=== PATIENT | female | born 1975 | race Caucasian/White ===

== ENCOUNTER 2016-10-04 04:29 | Inpatient (IN) | payer BC ==
[~2016-10-04] VITALS: Ht 170.2 cm; Wt 78.6 kg
[2016-10-04 04:41] VITALS: BMI 23.2
[2016-10-04] MEDS ORDERED: PRENTAB26 PO (04:41)
[2016-10-04 04:48] VITALS: Ht 170.2 cm; Wt 78.6 kg
[2016-10-04] MEDS ORDERED: LACTATED RINGER'S 1000ML 1,000 ML IV PRN ×2 (05:22→06:38)
[2016-10-04] MEDS ORDERED: LACTATED RINGER'S 1000ML 1,000 ML IV SCH ×2 (05:22→06:38)
[2016-10-04 05:53] LABS: HEMATOCRIT 28.5 % (37-47); MEAN CELL VOLUME 90.2 fL (80-100); MEAN CORPUSCULAR HEMOGLOBIN 30.4 pg (25-34); MEAN CORPUSCULAR HGB CONC 33.7 g/dl (32-36); MEAN PLATELET VOLUME 11.4 fL (7.4-10.4); PLATELET COUNT 204 K/uL (130-400); RED BLOOD COUNT 3.16 M/uL (4.2-5.4)
[2016-10-04] MEDS ORDERED: LACTATED RINGER'S 1000ML 500 ML IV PRN (07:13)
[2016-10-04] MEDS ORDERED: NALOXONE HCL INJ 1 MG in SODIUM CHLORIDE 0.9% 1000ML 1,000 ML IV PRN (07:13)
[2016-10-04] MEDS ORDERED: NALOXONE HCL INJ 0.4 MG/1 ML VIAL/CARP IV PRN (07:15)
[2016-10-04] MEDS ORDERED: FENTANYL 2MCG/ML ROPIV 1.25MG/ML 100ML BAG EPI PRN (07:15)
[2016-10-04] MEDS ORDERED: DiphenhydrAMINE HCL 50 MG/ML VIAL IV PRN (07:15)
[2016-10-04] MEDS ORDERED: EpHEDrine SULFATE INJ 50 MG/ML AMP IV PRN (07:15)
[2016-10-04] MEDS ORDERED: NALBUPHINE HCL INJ 10 MG/ML AMP IV PRN (07:15)
[2016-10-04] MEDS ORDERED: ONDANSETRON INJ 2 MG/ML 2 ML VIAL IV PRN (07:15)
[2016-10-04] MEDS ORDERED: OXYTOCIN 30 UNITS/500ML NSS IV ONE (08:15)
[2016-10-04] MEDS ORDERED: HYDROCORTISONE ACETATE 25 MG SUPP PR PRN (09:30)
[2016-10-04] MEDS ORDERED: OXYTOCIN 30 UNITS/500ML NSS IV PRN ×2 (09:30→09:45)
[2016-10-04] MEDS ORDERED: ACETAMINOPHEN/CODEINE 300/30MG TAB PO PRN ×2 (09:30)
[2016-10-04] MEDS ORDERED: LANOLIN OINT EXT PRN ×2 (09:30)
[2016-10-04] MEDS ORDERED: BENZOCAINE 20% AER SPR 82.5 GM CAN EXT PRN (09:30)
[2016-10-04] MEDS ORDERED: SUPERCREAM 0.870 % 15GM JAR EXT PRN (09:30)
[2016-10-04] MEDS ORDERED: NURSING VERBAL MED ORDER ONE (10:15)
[2016-10-04] MEDS: IBUPROFEN 600 MG TAB PO PRN ×2 (10:23→17:47)
[2016-10-04] MEDS ORDERED: OXYTOCIN INJ 20 UNITS in LR 1,000 ML IV SCH (10:30)
--- NOTE | 2016-10-04 10:38 | DELIVERY SUMMARY ---
DATE OF OPERATION: 10/04/2016 DATE OF DELIVERY: 10/04/2016. DELIVERING SURGEON: Dr. Narayanan. PROCEDURE: Spontaneous vaginal delivery with repair of 2nd degree perineal laceration. COMPLICATIONS: None. ESTIMATED BLOOD LOSS: 400 mL. FINDINGS: Viable male with Apgars 8 and 9, weight pending. DESCRIPTION OF DELIVERY: The patient progressed to complete with no epidural anesthesia. She then spontaneously vaginally delivered a viable male over an intact perineum. The baby delivered in the left occiput anterior position. The head delivered, nuchal cord x2 was noted. This was tight and not easily reduced, therefore the baby was delivered through, the anterior shoulder was delivered followed by the posterior shoulder followed by the body. The baby was dried and placed on the mother's abdomen and spontaneous cry was heard. Delayed cord clamping was performed waiting greater than 1 minute to clamp the cord. This cord was then doubly clamped and cut. Cord blood was obtained. The placenta was delivered spontaneously intact with a 3-vessel cord. Pitocin was given and the uterus became firm. The uterus and vagina were swept of all clots and debris. A second degree perineal laceration was noted. This was repaired in standard fashion with 3-0 Vicryl. Additionally while the anal sphincter muscle was not damaged by the perineal tear a single figure-of-8 stitch of 3-0 chromic was placed to provide additional support to the fascia of the anal sphincter muscle. Excellent hemostasis was observed. All sponge, instrument, and needle counts were correct x2 at the conclusion of the case. Mother and baby recovered well in the room. I attest to the content of the Intraoperative Record and any orders documented therein. Any exceptions are noted below. NORIS
[2016-10-04 10:50] VITALS: BP 106/64; PULSE 87; TEMP 36.8; O2SAT 100
[2016-10-04 15:00] VITALS: BP 107/68; PULSE 98; TEMP 36.6; O2SAT 97
[2016-10-04] MEDS: DOCUSATE SODIUM 100 MG/10 ML UDC PO SCH (19:42)
[2016-10-04 20:00] VITALS: BP 107/64; TEMP 37
[2016-10-04] MEDS ORDERED: DOCUSATE SODIUM 100 MG CAP PO SCH (20:00)
[2016-10-04 22:54] VITALS: BP 101/60; PULSE 92; TEMP 36.9
[2016-10-05 03:10] VITALS: BP 109/59; PULSE 92; TEMP 36.8
--- NOTE | 2016-10-05 06:44 | Progress Note ---
Subjective Oct 05, 2016. Subjective conversation w/ patient, physical exam Ambulation: ambulating normally Voiding: no voiding problems Passing Gas: Yes Diet Tolerance: Regular Diet Lochia: Small Feeding Type: Breast Feeding Pain: No pain reported this morning Review of Systems Constitutional: No chills, No fever Respiratory: No cough, No shortness of breath Cardiac: No chest pain Breast: No breast pain Abdomen: No nausea, No pain, No vomiting Female : No dysuria Objective Vital Signs Date Time Temp Pulse Resp B/P Pulse Ox O2 Delivery O2 Flow Rate FiO2 10/05/16 03:10 36.8 92 18 109/59 Room Air 10/04/16 22:57 Room Air 10/04/16 22:54 36.9 92 16 101/60 Room Air 10/04/16 20:00 37.0 18 107/64 Room Air 10/04/16 15:00 36.6 98 20 107/68 97 Room Air 10/04/16 15:00 97 Room Air 10/04/16 10:50 36.8 87 16 106/64 100 Room Air 10/04/16 10:50 100 Room Air Physical Exam General Appearance: WELL-APPEARING, WD/WN, NO APPARENT DISTRESS Respiratory/Chest: lungs clear, normal breath sounds Cardiovascular: regular rate, rhythm, no gallop, no murmur Abdomen: normal bowel sounds, non tender, soft Fundus: Firm, Relation to Umbilicus (1cm below umbilicus) Extremities: no calf tenderness Laboratory Results Last 24 Hours Test 10/05/16 04:44 Medications Current Inpatient Medications Medications (Trade) Dose Ordered Sig/Evan Route Start Time Stop Time Status Last Admin Dose Admin Lactated Ringer's (Lr 1000ml) 1,000 ml @ 125 mls/hr Q8H IV 10/04/16 05:22 10/06/16 05:21 Oxytocin (Pitocin IV) 30 units UD PRN IV 10/04/16 09:30 11/03/16 09:29 Benzocaine (Dermoplast Aero Spr) 1 appln PRN PRN EXT 10/04/16 09:30 11/03/16 09:29 10/04/16 10:23 1 APPLN Cocaine HCl (Supercream 0.870% Cr) BID PRN EXT 10/04/16 09:30 10/18/16 09:29 10/04/16 15:03 15 GM Hydrocortisone Acetate (Anusol Hc Supp) 25 mg BID PRN MT 10/04/16 09:30 11/03/16 09:29 Lanolin (Lanolin Oint) PRN PRN EXT 10/04/16 09:30 11/03/16 09:29 Ibuprofen (Motrin Tab) 600 mg Q4H PRN PO 10/04/16 09:30 11/03/16 09:29 10/04/16 17:47 600 MG Acetaminophen/ Codeine Phosphate (Tylenol w/ Codeine #3 Tab) 1 tab Q4H PRN PO 10/04/16 09:30 11/03/16 09:29 Acetaminophen/ Codeine Phosphate (Tylenol w/ Codeine #3 Tab) 2 tab Q4H PRN PO 10/04/16 09:30 11/03/16 09:29 Bisacodyl (Dulcolax Tab) 5 mg 20 PO 10/05/16 20:00 10/05/16 20:01 Oxytocin 20 units 20 units UD PRN IV 10/04/16 09:45 11/03/16 09:44 Oxytocin/Lactated Ringer's (Pitocin Inj/Lr 1000ml) 1,002 ml @ 125 mls/hr Q8H1M IV 10/04/16 10:30 11/03/16 10:29 Docusate Sodium (coLACE SYRUP) 100 mg BID PO 10/04/16 20:00 11/03/16 19:59 10/04/16 19:42 100 MG Assessment and Plan Post- Day#: 1 Continue Routine Care: - Vital Signs reviewed and WNL (temp max 36.7) - Blood Type: O+, GBS- , Rubella Immune - Patient doing well clinically - Encourage Ambulation today - Pain well controlled with Motrin - Tolerating PO Diet Well - Wants to go home today after circumcision Resident Physician Supervision Note: I was present with Dr. Burgess during the history and exam. I discussed the case with the resident and agree with the findings and plan as documented in the note. Any exceptions or clarifications are listed here: PPD#1. Feeling well. Requesting discharge home today. RTO 6w . Documented By: Jenae Narayanan
--- NOTE | 2016-10-05 06:45 | Discharge Instructions ---
Discharge Instructions Admission Reason for Admission: LABOR Discharge Discharge Diagnosis / Problem: Vaginal Delivery Discharge Goals Goal(s): Routine recovery after delivery Medications Continue Dispensed Medications: supercream, dermaplast, tucks, lansinoh Activity Recommendations Activity Limitations: per Instructions/Follow-up section . Instructions / Follow-Up Instructions / Follow-Up ACTIVITY RECOMMENDATIONS: * Gradual return to full activity over the next 2-3 weeks. * No lifting - nothing heavier than baby over the next 2-3 weeks. * Do not engage in vigorous exercise, sexual activity or sports until cleared by your physician. * Do not drive or operate any motorized equipment until cleared by your physician. * You may shower/bathe daily. MEDICATIONS: For discomfort or pain, you may use Acetaminophen (Tylenol), Ibuprofen (Advil), or Naproxen (Aleve) following the package directions. For constipation you may use Colace following the package directions. BREAST CARE: If you are not breast feeding: * Wear a supportive bra 24 hours a day for one to two weeks. * Avoid stimulating your breasts and nipples as much as possible during the first few weeks after delivery. * When taking a shower, have the warm water hit your back, not breasts. * When your breasts feel full, apply ice packs. Usually three to four times a day helps ease the discomfort. * Take a mild pain medication (Tylenol / Motrin) when you are uncomfortable. If breast feeding: * Use breast milk to lubricate nipples. Lansinoh cream may be used for sore nipples. You do not need to remove cream prior to breast feeding. If using a different brand of cream, check the label for directions regarding removal of cream prior to nursing. * Wear a supportive bra. * If having problems with breasts or breast feeding, call a consultant dietitian or your health care provider. EPISIOTOMY CARE: After delivery, if you have an episiotomy (stitches), the following steps will ease discomfort and aid healing. * For the first 24 hours after delivery, place ice packs next to your episiotomy to help reduce swelling. * After the first 24 hour-period, sitz baths, either portable or in the tub, are suggested. A shower with a shower arm sprayed over the episiotomy may be comforting. * Paulina care should be done after each voiding and bowel movement. Squirt warm water from a plastic bottle over the perineum (region of the body between the anus and urinary opening) and pat dry. * Use Dermoplast to ease discomfort. Shake container. [place] directly over the episiotomy. Place a Tucks on a clean sanitary pad next to your episiotomy. SPECIAL CARE INSTRUCTIONS: When you are discharged from the hospital, it is important for you to follow the instructions listed below: * During the first week at home, you should be able to care for yourself and your baby. In addition, the usual light household activities are encouraged. * Limit your activities to the way you feel. Do not try to clean the house or move furniture. Be sensible. * If you actively engage in sports and have done so up until the time of your delivery, you may resume these activities as soon as you feel able. This may take up to one month or even longer. Use good judgment. * Continue to take your vitamins for at least six weeks after the of your baby. * Your diet need not be limited unless you were on a special diet before your delivery. Breast-feeding mothers need around 2500 calories per day and at least 64-80 ounces of fluid per day (8 to 10 glasses). * You should eat foods from the four major food groups. Crash diets or fad diets are to be avoided. Eating lean meats, fresh fruits and vegetables, low-fat dairy products, high fiber foods and a regular exercise program, will help you get back to your pre- weight without putting your health at risk. * Constipation is sometimes a problem after delivery. Take a mild laxative as needed. If breast feeding, Milk of Magnesia is acceptable to use. You may use a suppository or Fleets enema if no episiotomy. * A daily shower or tub bath is suggested. Be sure to thoroughly and gently dry the perineum. * A bloody vaginal discharge will usually continue until around four weeks post . A small amount of bleeding may continue for as long as six weeks. Vaginal discharge changes from the bright red bleeding after delivery to pink then brownish and finally yellowish-pink before becoming white and disappearing. * Bleeding may increase with activity. Your first period may come in 4-8 weeks. If you are breast feeding, your period may be delayed even longer. * [place] (sex) can begin whenever both you and your partner feel comfortable and do not have any form of genital infection. It is recommended that you wait at least six weeks for internal and external healing to occur. If you have questions, please talk to your health care practitioner. A condom should be used to prevent infection and . * Foreplay, gentle intercourse and lubrication is very important the first several times to prevent pain. A water-based lubricant such as K-Y jelly or Astroglide may be used. * If you have RH negative blood and your baby is RH positive, you will receive RHOGAM by injection prior to discharge. The nurse will give you a card to keep with you that has the date and place that you received RHOGAM after delivery. * During your care, you had a Rubella screen done to check for the presence of rubella antibodies in your blood. If your test was negative, you will receive a Rubella vaccine prior to discharge. This vaccine may cause a fever, soreness at the injection site and flu-like symptoms. If these symptoms persist, notify your health care practitioner. is not advised for one month after a Rubella vaccine. * Verbalizes understanding of car seat law as reviewed with patient nursing. * Car Seat hand-out given and reviewed with patient by nursing. * Shaken baby information reviewed with patient by nursing. Call you doctor if: * Heavy bleeding (saturating several pads an hour) or passing clots the size of your fist. * A fever >101 degrees F (38.3 degrees C) on two occasions four hours apart and /or chills. * Unusual pain in the pelvic or vaginal areas. * "Baby Blues" lasting longer than two weeks. If you have any questions or concerns, call your health care practitioner at . FOLLOW UP VISIT: * Please call the office at to schedule a 6 week examination. It is important you keep this appointment. It is important for you to make arrangements for either yearly or twice yearly check-ups thereafter. Current Hospital Diet Patient's current hospital diet: Regular OB Diet Discharge Diet Recommended Diet: Regular Diet Pending Studies Studies pending at discharge: no Medical Emergencies . Who to Call and When: Medical Emergencies: If at any time you feel your situation is an emergency, please call 911 immediately. . Non-Emergent Contact Non-Emergency issues call your: Director Product Management . . "Provider Documentation" section prepared by Michael Burgess. VTE Core Measure Inpt VTE Proph given/why not?: Treatment not indicated
[2016-10-05 07:00] LABS: HEMATOCRIT 24.9 % (37-47)
[2016-10-05] MEDS: DOCUSATE SODIUM 100 MG/10 ML UDC PO SCH (09:14)
[2016-10-05 09:30] VITALS: BP 113/77; PULSE 90; TEMP 36.8; O2SAT 100
[2016-10-05] MEDS ORDERED: DIPHTHERIA/TETANUS/PERTUSSIS 0.5 ML SYR/VIAL IM. ONE (11:45)
[2016-10-05 16:30] VITALS: BP 110/73; PULSE 96; TEMP 36.9; O2SAT 99
[2016-10-05 19:58] VITALS: BP_DIAS 73; PULSE 96; TEMP 36.9
[2016-10-05] MEDS ORDERED: BISACODYL 5 MG TABEC PO SCH (20:00)
== END 2016-10-05 20:07 | disposition home or self-care (01) | DRG 775 ==
LOC: C.LD 04:29 → C.OPB 04:29 → C.LD 05:23 → C.OPB 05:23 → C.OBG 10:26 → EDSTATUS 10-09 04:27
PROVIDERS: ADMIT Obstetrics & Gynecology; ATTEND Obstetrics & Gynecology
PROC: 0KQM0ZZ Repair Perineum Muscle, Open Approach (ICD-10-PCS; principal; 2016-10-04)
PROC: 10E0XZZ Delivery of Products of Conception, External Approach (ICD-10-PCS; principal; 2016-10-04)
DX: O70.1 Second degree perineal laceration during delivery (principal); O69.1XX0 Labor and delivery complicated by cord around neck, with compression, not applicable or unspecified; Z37.0 Single live birth; Z3A.39 39 weeks gestation of pregnancy; Z23 Encounter for immunization

== ENCOUNTER → 2016-11-28 | Outpatient (CLI) | payer BC ==
[~2016-11-28] MED LIST: PRENTAB26 PO
--- NOTE | 2016-11-28 13:49 | MAMMOGRAPHY REPORT ---
BILATERAL DIGITAL DIAGNOSTIC MAMMOGRAM TOMOSYNTHESIS WITH CAD AND TARGETED BILATERAL ULTRASOUND: 11/28 CLINICAL HISTORY: 41-year-old woman who presents for bilateral mammography. She is approximately 2 months and at her 6 week checkup her physician felt nodularity in the lower in ner quadrant of the right breast. She also noted a prominent superficial vein in the 7:00 right cortney ast. Patient feels a new lump in the left breast. TECHNIQUE: Breast tomosynthesis in addition to standard 2D mammography was performed. Current study was also evaluated with a Computer Aided Detection (CAD) system. COMPARISON: Comparison is made to exams dated: 09/21/2015 mammogram - [facility] and 05/06/2013 mammogram. BREAST COMPOSITION: The tissue of both breasts is extremely dense, which lowers the sensitivity of mammography. FINDINGS: Triangular skin palpable markers overlie the 6:00 right breast, and approximately 10:00 le ft breast. There are diffuse benign appearing microcalcifications bilaterally, most numerous in eac h upper outer quadrant. In the left anterior breast correlating near the palpable marker, there is a partially circumscribed incompletely visualized 2.2 cm mass, for which further evaluation with ult rasound was performed. No other obvious mass, architectural distortion or suspicious new cluster of microcalcifications is seen in the left breast. No definite mass, architectural distortion or suspicious calcifications are seen to correlate with t he palpable concern in the right breast. Nevertheless, further evaluation with ultrasound was perfo rmed. Real-time high-resolution sonography evaluation was performed in the lower inner quadrant of the rig ht breast including the 7:00 axis in the area of visible prominent vein. Targeted ultrasound was al so performed in the 11:00 periareolar left breast, in the area of new palpable lump pointed out by t he patient. In the left 11:00 periareolar breast, there are 2 abutting anechoic cysts. In conglome rate they measure 28.3 x 14.4 x 27.9 mm. These anechoic cysts are benign and no further workup is n eeded at this time. Within the 4:00 right breast, 2 cm from the nipple, there is a rounded hypoecho ic solid-appearing mass measuring 6.6 x 5.7 x 6.5 mm. No significant increased vascularity. No oth er suspicious solid or cystic mass is seen in the right lower inner quadrant. Mild lactational tucker ges are evident in the right breast on ultrasound. Additionally, in the area of prominent superfici al vein in the 7:00 axis, blood flow is identified within this vascular structure. There is no evid ence of superficial thrombophlebitis. IMPRESSION: ACR BI-RADS CATEGORY 4: SUSPICIOUS, TARGETED ULTRASOUND ACR BI-RADS CATEGORY 4: SUSPICI OUS 1. Ultrasound guided core needle biopsy is recommended for an indeterminate round solid 6.6 mm mass in the 4:00 right breast, 2 cm from the nipple. It is unclear if this correlates with the palpable abnormality identified by the patient's physician, as the patient described the area of nodularity as the entire lower inner quadrant. This may be incidentally identified. 2. The new palpable mass in the left 11:00 breast identified by the patient correlates with 2 abutt ing a benign anechoic simple cysts on ultrasound. No further workup is needed at this time. These results and recommendations were discussed with the patient at the time of the exam. She tent atively scheduled the right breast ultrasound guided core biopsy prior to leaving our department. Approximately 10% of breast cancers are not detected with mammography. A negative mammographic repor t should not delay biopsy if a clinically suggestive mass is present. Sejal Santos M.D. ay/:11/28/2016 12:45:29 High Climber: Lashay ZHENG)(Araceli), [facility] letter sent: Abnormal 4/5 BI-RADS Code: ACR BI-RADS Category 4: Suspicious Ultrasound BI-RADS: ACR BI-RADS Category 4: Suspic ious
== END | disposition home or self-care (01) ==
LOC: C.MAMM 09:06
PROVIDERS: ATTEND Obstetrics & Gynecology
DX: N63 Unspecified lump in breast (principal)

== ENCOUNTER → 2016-12-12 | Outpatient (CLI) | payer BC ==
--- NOTE | 2016-12-12 10:45 | Discharge Instructions ---
Discharge Instructions Procedure Procedure Date: Dec 12, 2016. Reason for visit: Right Mass. Discharge Discharge Date: Dec 12, 2016. Discharge Diagnosis: post right breast ultrasound guided core biopsy Instructions Activity Recommendations: Additional Limitations (see below) Return to School/Work: no limitations Recommended Home Diet: No Limitations Provider Instructions: ACTIVITY RECOMMENDATIONS: * No lifting, pushing, pulling or exercising the affected side for three days. RETURN TO SCHOOL/WORK: * You may return to work/school after the procedure, but do not perform any strenuous activities for 24 to 48 hours. MEDICATIONS: * Tylenol (two 325 mg) every four to six hours if needed for mild pain (if not allergic to Tylenol). DIET: * Resume previous diet. SPECIAL CARE INSTRUCTIONS: * Keep biopsy site dry for 24 hours. May shower after 24 hours, but do not soak (bathe) incision. * May remove Tegaderm (plastic patch) tomorrow AFTER showering. * Leave the steri-strips on for one week. Allow the steri-strips to fall off by themselves. If not off after one week, you may remove them. You may place a Bandaid crosswise over the strips, if desired. * Apply ice 10 minutes on and 10 minutes off as needed. * Wear a bra at bedtime to sleep more comfortably for 2-3 days. * Your referring physician should have the results after approximately 5 to 7 business days. * Call for unusual bleeding, fever, drainage, etc or if you have any questions call [phone] during normal business hours or after hours call Dr Santos, . FOLLOW UP VISIT: Follow-up with Referring Physician as scheduled. Allergies Coded Allergies: No Known Allergies (Unverified , 10/04/16) Earnest Hernandez Recommendations: Call your doctor if: * Temperature above 101 degrees * Pain not relieved by pain medicine ordered * There is increased drainage or redness from any incision * You have any unanswered questions or concerns. Your Doctors Instructions noted above were prepared by provider Sejal Santos. Patient Signature Section: Patient Instructions Signature Page Anita Gunn Patient (or Guardian) Signature/Date: I have read and understand the instructions given to me by my caregivers. Caregiver/RN/Doctor Signature/Date: The above-named patient and/or guardian has received patient instructions on this date. + Original Patient Signature Page (only) stays with chart. Please make copy for patient.
--- NOTE | 2016-12-12 13:54 | MAMMOGRAPHY REPORT ---
THIS REPORT HAS BEEN AMENDED. ULTRASOUND GUIDED BIOPSY RIGHT BREAST: 12/12/2016 CLINICAL HISTORY: Hypoechoic round indeterminate solid-appearing mass in the 4:00 right breast near an area of palpable concern identified by the patient's physician. Patient presented for ultrasound -guided core needle biopsy. COMPARISON: Comparison is made to exams dated: 03/22/2012 mammogram, 05/06/2013 mammogram, 09/21/2015 mammogram, and 11/28/2016 mammogram - [facility]. PATIENT CONSENT: The procedure, risks and benefits were discussed with the patient and informed writ ten consent was obtained. Specific risks to this procedure include: bleeding, infection, puncture of adjacent structure, nontarget biopsy, sampling error, metal allergy and medication reaction. PROCEDURE DESCRIPTION: A time out was performed and the right breast was agreed as the site of biops y. The skin was prepped and draped in the usual sterile fashion. The solid rounded mass in the 4:00 right breast was chosen as the target for biopsy. Subcutaneous and intraparenchymal 1% buffered lido steph, with and without epinephrine, was administered as local anesthesia. A skin incision was made. Through the incision, 3 samples were taken with a 14 gauge Achieve biopsy device. After the first sample, the mass decreased in size suggesting cystic or mucinous nature. A metallic marker was paula vega at the biopsy site. Hemostasis was achieved after manual compression. The patient tolerated the procedure well and there was no immediate complication. The samples were sent to the pathology depa rtment in an appropriately labeled container. After the procedure the patient felt a little lightheaded and therefore the post procedure mammogram s were obtained in the seated position. The postprocedure right CC and ML 2-D digital and tomosynthesis images demonstrate a new ribbon-shap ed metallic biopsy marker and no significant hematoma in the 4:00 posterior right breast, at the sit e of the biopsied mass identified on ultrasound. IMPRESSION: ULTRASOUND GUIDED BIOPSY Status post ultrasound-guided core needle biopsy of an indeterminate mass in the 4:00 right breast, with biopsy marker placed at the site. The mass decreased in size during the biopsy suggesting cyst ic or mucinous nature. Pending pathology results, continued clinical follow-up is recommended as it is unclear if the biops ied mass correlates with the area of palpable concern initially identified by the patient's physicia n. She will receive notification of the biopsy results from her referring physician. Sejal Santos M.D. ay/:12/12/2016 11:18:04 Attending Technologist: Dr. Sejal Santos, [facility] Sampler Ovens: Wm Walls RT(R)(M), [facility] AMENDMENT: 12/23/2016 Sejal Santos M.D. Pathology results from the ultrasound-guided core needle biopsy of an indeterminate hypoechoic solid versus cystic mass in the 4:00 right breast yielded diffuse adenosis and focal fibrocystic change. The pathology results are concordant with the imaging appearance and the biopsied mass significantl y decreased in size after the first sample suggesting it represented a cyst. Nevertheless, a short interval follow-up diagnostic right mammogram and repeat targeted ultrasound in the 4:00 axis is rec ommended to ensure stability in 6 months. letter sent: Follow Up Recommended 3
--- NOTE | 2016-12-12 13:56 | MAMMOGRAPHY REPORT ---
UNILATERAL RIGHT DIGITAL DIAGNOSTIC MAMMOGRAM TOMOSYNTHESIS: 12/12/2016 CLINICAL HISTORY: Status post ultrasound-guided biopsy of an indeterminate solid versus cystic round ed mass in the 4:00 right breast. Please refer to the report from right breast ultrasound guided core biopsy [facility] for full detail. IMPRESSION: POST PROCEDURE IMAGING FOR MARKER PLACEMENT Please refer to the report from right breast ultrasound guided core biopsy performed [facility] for full detail. Approximately 10% of breast cancers are not detected with mammography. A negative mammographic repor t should not delay biopsy if a clinically suggestive mass is present. Sejal Santos M.D. ay/:12/12/2016 12:30:33 Director Of Student Financial Aid: Wm HASSAN(R)(M), [facility] BI-RADS Code: Post Procedure Imaging For Marker Placement
== END | disposition home or self-care (01) ==
LOC: C.MAMM 09:56
PROVIDERS: ATTEND Obstetrics & Gynecology
DX: N63 Unspecified lump in breast (principal)

== ENCOUNTER → 2017-06-19 | Outpatient (CLI) | payer BC ==
--- NOTE | 2017-06-19 13:34 | MAMMOGRAPHY REPORT ---
UNILATERAL RIGHT DIGITAL DIAGNOSTIC MAMMOGRAM TOMOSYNTHESIS WITH CAD AND TARGETED RIGHT ULTRASOUND: CLINICAL HISTORY: 42-year-old woman presents for follow-up in the right breast. She is 6 months stat us post benign biopsy in the 4:00 axis. TECHNIQUE: Breast tomosynthesis in addition to standard 2D mammography was performed. Current study was also evaluated with a Computer Aided Detection (CAD) system. COMPARISON: Comparison is made to exams dated: 12/12/2016 mammogram, 12/12/2016 ultrasound biopsy, 11/28 ultrasound, 11/28/2016 mammogram, 09/21/2015 mammogram - [facility], and 013 mammogram. BREAST COMPOSITION: The tissue of the right breast is heterogeneously dense, which may obscure small masses. FINDINGS: There is a stable ribbon-shaped biopsy marker clip in the 4:00 middle to posterior right b reast, denoting the site of prior benign ultrasound-guided core biopsy. There is a possible 12 mm pa rtially circumscribed and scared mass in the lateral middle one third of the right breast, for which additional sonographic evaluation was performed. There is a mixed density 10 x 14 mm ovoid focal asy mmetry in the superior posterior right breast, only seen on the MLO view. No evidence of associated architectural distortion or microcalcification. Further evaluation with ultrasound was performed. T here are numerous round and punctate benign-appearing microcalcifications throughout the right breast , stable mammographically dating back to at least 2012, therefore likely benign. Repeat targeted ultrasound was performed in the 4:00 axis of the right breast, and also the superior and lateral breast to evaluate for the new mammographic findings. In the 4:00 right breast, 2 cm fro m the nipple in the area of previously biopsied mass, a tiny hypoechoic 3.7 x 3.0 mm mass is identifi ed with adjacent biopsy marker clip (denoted by arrow) confirming benignity given the significant dec rease in size and also concordant with the pathology results of a benign cyst. No further workup is needed at this time. In the 12:00 periareolar breast, there is a circumscribed round hypoechoic emeli d versus cystic mass measuring 11.2 x 10.1 x 12.0 mm. When comparing back to prior ultrasounds, a ma ss was previously identified in this location on 03/22/2012 and that mass measured 20.4 x 14.7 x 19.4 mm. The interval decrease in size confirms benignity. In the 8:00 right breast, 2 cm from the nipp le, there is a circumscribed benign anechoic simple cyst with posterior acoustic enhancement, measuri ng 14.4 x 10.5 x 14.0 mm, an adjacent benign-appearing hypoechoic solid versus cystic mass measuring 6.9 x 4.6 x 5.8 mm. In the 9:30 right breast, 5 cm from the nipple, there is a subtle mixed echogeni city horizontally oriented mass measuring 11.7 x 19.0 mm. This may correspond to the mammographic as ymmetry in the superior posterior breast on the MLO view. After further questioning the patient pablo es any recent trauma or injury to the superior right breast and therefore this lesion is indeterminat e. Although it could represent fat necrosis, given the increased mammographic prominence, definitive characterization with an ultrasound-guided core biopsy is recommended. IMPRESSION: ACR BI-RADS CATEGORY 4: SUSPICIOUS, TARGETED ULTRASOUND ACR BI-RADS CATEGORY 4: SUSPICIO US 1. Ultrasound guided core biopsy is recommended for a solid mixed echogenicity 19 mm mass in the 9:3 0 right breast, 5 cm from the nipple, thought to correlate with an increasingly prominent focal mammo graphic asymmetry. 2. A newly visualized mass in the lateral right breast seen mammographically correlates with a benig n anechoic simple cyst on ultrasound. An incidentally seen sonographic mass in the 12:00 periareolar right breast has decreased in size compared to a prior ultrasound performed in 2011, also confirming benignity. There are other scattered cysts and benign fibrocystic changes in the right breast on ul trasound. 3. The previously biopsied benign mass in the 4:00 right breast has significantly decreased in size comparing to prebiopsy images, also confirming benignity and concordant with the pathology results. These results and recommendations were discussed with the patient at the time of the exam. She is te ntatively scheduled the right breast ultrasound guided core biopsy in the 9:30 axis prior to leaving our department. Approximately 10% of breast cancers are not detected with mammography. A negative mammographic report should not delay biopsy if a clinically suggestive mass is present. Sejal Santos M.D. ay/:06/19/2017 12:56:45 General Merchandise Manager: Corrina Mendez, [facility] letter sent: Abnormal 4/5 BI-RADS Code: ACR BI-RADS Category 4: Suspicious Ultrasound BI-RADS: ACR BI-RADS Category 4: Suspici ous
== END | disposition home or self-care (01) ==
LOC: C.MAMM 10:29
PROVIDERS: ATTEND Obstetrics & Gynecology
DX: N63 Unspecified lump in breast (principal)

== ENCOUNTER → 2017-06-26 | Outpatient (CLI) | payer BC ==
--- NOTE | 2017-06-26 13:24 | Discharge Instructions ---
Discharge Instructions Procedure Procedure Date: Jun 26, 2017. Reason for visit: Right Asymmetry. Discharge Discharge Date: Jun 26, 2017. Discharge Diagnosis: post right breast ultrasound guided core biopsy Instructions Activity Recommendations: Additional Limitations (see below) Return to School/Work: no limitations Recommended Home Diet: No Limitations Provider Instructions: ACTIVITY RECOMMENDATIONS: * No lifting, pushing, pulling or exercising the affected side for three days. RETURN TO SCHOOL/WORK: * You may return to work/school after the procedure, but do not perform any strenuous activities for 24 to 48 hours. MEDICATIONS: * Tylenol (two 325 mg) every four to six hours if needed for mild pain (if not allergic to Tylenol). DIET: * Resume previous diet. SPECIAL CARE INSTRUCTIONS: * Keep biopsy site dry for 24 hours. May shower after 24 hours, but do not soak (bathe) incision. * May remove Tegaderm (plastic patch) tomorrow AFTER showering. * Leave the steri-strips on for one week. Allow the steri-strips to fall off by themselves. If not off after one week, you may remove them. You may place a Bandaid crosswise over the strips, if desired. * Apply ice 10 minutes on and 10 minutes off as needed. * Wear a bra at bedtime to sleep more comfortably for 2-3 days. * Your referring physician should have the results after approximately 5 to 7 business days. * Call for unusual bleeding, fever, drainage, etc or if you have any questions call [phone] during normal business hours or after hours call Dr Santos, . FOLLOW UP VISIT: Follow-up with Referring Physician as scheduled. Allergies Coded Allergies: No Known Allergies (Unverified , 10/04/16) Earnest Hernandez Recommendations: Call your doctor if: * Temperature above 101 degrees * Pain not relieved by pain medicine ordered * There is increased drainage or redness from any incision * You have any unanswered questions or concerns. Your Doctors Instructions noted above were prepared by provider Sejal Santos. Patient Signature Section: Patient Instructions Signature Page Anita Gunn Patient (or Guardian) Signature/Date: I have read and understand the instructions given to me by my caregivers. Caregiver/RN/Doctor Signature/Date: The above-named patient and/or guardian has received patient instructions on this date. + Original Patient Signature Page (only) stays with chart. Please make copy for patient.
--- NOTE | 2017-06-26 15:44 | MAMMOGRAPHY REPORT ---
ULTRASOUND GUIDED BIOPSY RIGHT BREAST: 06/26/2017 CLINICAL HISTORY: Indeterminate heterogeneously isoechoic 13 mm oval mass in the 9:30 right breast, t hought to correlate with the mammographic asymmetry. Patient presents for ultrasound-guided core nee dle biopsy. COMPARISON: Comparison is made to exams dated: 06/19/2017 mammogram, 06/19/2017 ultrasound, 12/12/2016 mammogram, 11/28/2016 ultrasound, 11/28/2016 mammogram, and 09/21/2015 mammogram - [facility]. PATIENT CONSENT: The procedure, risks and benefits were discussed with the patient and informed conse nt was obtained both verbally and in writing. Specific risks to this procedure include: bleeding, in fection, puncture of adjacent structure, nontarget biopsy, sampling error, pain, metal allergy and me dication reaction. PROCEDURE DESCRIPTION: A time out was performed and the right breast was agreed as the site of biopsy . The skin was prepped and draped in the usual sterile fashion. The isoechoic oval parallel mass in t he 9:30 right breast was chosen as the target for biopsy. Subcutaneous and intraparenchymal 1% buffer ed lidocaine, with and without epinephrine, was administered as local anesthesia. A skin incision was made. Through the incision, 4 samples were taken with a 14 gauge Achieve biopsy device. A wing-shap ed metallic marker was placed at the biopsy site. Hemostasis was achieved after manual compression. T he patient tolerated the procedure well and there was no immediate complication. The samples were se nt to the pathology department in an appropriately labeled container. Postprocedure right CC and ML tomosynthesis images and reconstructed C-view were obtained. A new win g-shaped metallic biopsy marker clip is identified on the posterior Shaker ML view and it aligns with the mammographic asymmetry in question, confirming mammographicsonographic correlation. A stable r ibbon shaped clip is seen in the inferior right breast from prior benign ultrasound-guided core biops y. No significant postbiopsy hematoma. IMPRESSION: ULTRASOUND GUIDED BIOPSY Status post ultrasound guided core biopsy and a indeterminate heterogeneously isoechoic solid-appeari ng 14 mm mass in the 9:30 right breast, which correlates with a mammographic asymmetry. The patient will receive notification of the biopsy results from her referring physician. Sejal Santos M.D. ay/:06/26/2017 14:34:17 Attending Technologist: Dr. Sejal Santos, [facility] Therapy Counselor: Venus Escobar RT(R)(M), [facility]
--- NOTE | 2017-06-26 15:45 | MAMMOGRAPHY REPORT ---
UNILATERAL RIGHT DIGITAL DIAGNOSTIC MAMMOGRAM TOMOSYNTHESIS: 06/26/2017 CLINICAL HISTORY: 42-year-old woman presents for ultrasound-guided core biopsy of an indeterminate is oechoic mass in the 9:30 right breast, thought to correlate with an asymmetry seen mammographically. Please refer to the report from right breast ultrasound-guided core biopsy performed at the same time for full detail. IMPRESSION: POST PROCEDURE IMAGING FOR MARKER PLACEMENT Please refer to the report from right breast ultrasound-guided core biopsy performed at the same time for full detail. Approximately 10% of breast cancers are not detected with mammography. A negative mammographic report should not delay biopsy if a clinically suggestive mass is present. Sejal Santos M.D. ay/:06/26/2017 13:25:20 Jewelry Inspector: Venus ZHENG)(M), [facility] BI-RADS Code: Post Procedure Imaging For Marker Placement
== END | disposition home or self-care (01) ==
LOC: C.MAMM 12:37
PROVIDERS: ATTEND Obstetrics & Gynecology
DX: N63.0 Unspecified lump in unspecified breast (principal); R92.8 Other abnormal and inconclusive findings on diagnostic imaging of breast

== ENCOUNTER → 2017-12-04 | Outpatient (CLI) | payer OTHER | END | disposition home or self-care (01) | LOC: C.PAPS 13:54 | PROVIDERS: ATTEND Family Medicine | DX: N84.1 Polyp of cervix uteri (principal); Z00.00 Encounter for general adult medical examination without abnormal findings ==

== ENCOUNTER → 2017-12-18 | Outpatient (CLI) | payer OTHER ==
[2017-12-18 12:19] LABS: HEMATOCRIT 39.6 % (37-47); HEMOGLOBIN 13.1 g/dL (12.0-16.0); MEAN CELL VOLUME 90.8 fL (80-100); MEAN CORPUSCULAR HGB CONC 33.1 g/dl (32-36); PLATELET COUNT 205 K/uL (130-400); RED CELL DISTRIBUTION WIDTH CV 14.6 % (11.5-14.5); RED CELL DISTRIBUTION WIDTH SD 48.8 fL (36.4-46.3); WHITE BLOOD COUNT 3.99 K/uL (4.8-10.8)
[2017-12-18 12:41] LABS: BLOOD UREA NITROGEN 14 mg/dl (7-18); CARBON DIOXIDE 28 mmol/L (21-32); CHOLESTEROL 166 mg/dl (0-200); CREATININE 0.78 mg/dl (0.60-1.20); GLUCOSE 85 mg/dl (70-99); POTASSIUM 3.9 mmol/L (3.5-5.1); SODIUM 139 mmol/L (136-145)
[2017-12-18 12:53] LABS: LDL CHOLESTEROL CALCULATED 93 mg/dl
== END | disposition home or self-care (01) ==
LOC: C.LAB1850 09:36
PROVIDERS: ATTEND Family Medicine
DX: Z13.220 Encounter for screening for lipoid disorders (principal); Z00.00 Encounter for general adult medical examination without abnormal findings